=== PATIENT | female | born 1935 | race Two or more races ===

== ENCOUNTER 2018-03-03 11:00 | Inpatient (IN) | payer OTHER ==
[~2018-03-03] VITALS: Ht 152.4 cm; Wt 66.2 kg
[~2018-03-03 11:00] MED LIST: BISOPROLOL-HCTZ1 TA1; COZAAR100 MG
[2018-03-03] MEDS ORDERED: TOPROL XL50 M1 (11:05)
[2018-03-03] MEDS ORDERED: ASA81 MG (11:05)
== END 2018-03-09 13:26 | disposition home or self-care (01) | DRG 300 ==
LOC: ER 11:00 → MEDI 18:21 → MEDJ 03-04 15:34
PROC: 3E0F7GC Introduction of Other Therapeutic Substance into Respiratory Tract, Via Natural or Artificial Opening (ICD-10-PCS; principal; 2018-03-03)
PROC: B54BZZZ Ultrasonography of Right Lower Extremity Veins (ICD-10-PCS; 2018-03-03)
PROC: BT43ZZZ Ultrasonography of Bilateral Kidneys (ICD-10-PCS; 2018-03-05)
PROC: 4A033R1 Measurement of Arterial Saturation, Peripheral, Percutaneous Approach (ICD-10-PCS; 2018-03-06)
PROC: BW40ZZZ Ultrasonography of Abdomen (ICD-10-PCS; 2018-03-06)
DX: I82.4Z1 Acute embolism and thrombosis of unspecified deep veins of right distal lower extremity (principal); N17.8 Other acute kidney failure; J45.41 Moderate persistent asthma with (acute) exacerbation; J20.9 Acute bronchitis, unspecified; D72.823 Leukemoid reaction

== ENCOUNTER 2018-09-16 17:53 | Emergency (ER) | payer OTHER ==
[~2018-09-16] VITALS: Ht 152.4 cm; Wt 0.5 kg
[~2018-09-16 17:53] MED LIST changes: +ASA81 MG; +TOPROL XL50 M1
[2018-09-16] MEDS ORDERED: XARELTO15 MG (18:12)
[2018-09-16] MEDS ORDERED: SKELAXIN800 MG PO (22:06)
== END 2018-09-16 22:37 | disposition home or self-care (01) ==
LOC: ER 17:53
DX: M79.661 Pain in right lower leg (principal)

== ENCOUNTER 2018-11-05 12:55 | Emergency (ER) | payer OTHER ==
[~2018-11-05] VITALS: Ht 180.3 cm; Wt 65.8 kg
[~2018-11-05 12:55] MED LIST changes: +SKELAXIN800 MG PO; +XARELTO15 MG
[2018-11-05] MEDS ORDERED: BACTRIM DS TAB1 EACH PO (19:36)
== END 2018-11-05 20:49 | disposition home or self-care (01) ==
LOC: ER 12:55
DX: L03.116 Cellulitis of left lower limb (principal); D72.828 Other elevated white blood cell count; I73.9 Peripheral vascular disease, unspecified

== ENCOUNTER 2024-07-05 15:55 | Emergency (ER) | payer OTHER ==
[~2024-07-05] VITALS: Ht 152.4 cm; Wt 61.7 kg
[~2024-07-05 15:55] MED LIST changes: +BACTRIM DS TAB1 EACH PO
[2024-07-05] MEDS ORDERED: CLARITHROMYCIN500 MG PO (16:21)
[2024-07-05] MEDS ORDERED: AMOXICILLIN500 M1 PO (16:21)
[2024-07-05] MEDS ORDERED: OMEPRAZOLE20 MG PO (16:21)
[2024-07-05] MEDS ORDERED: DILTIAZEM ER420 M1 PO (16:22)
[2024-07-05] MEDS ORDERED: ROSUVASTATIN CA40 MG PO (16:22)
[2024-07-05] MEDS ORDERED: HYDROXYUREA PO (16:25)
[2024-07-05] MEDS ORDERED: KETOROLAC TROMETHAMINE 60 MG VIAL IM ONE (19:15)
[2024-07-05] MEDS ORDERED: DEXAMETHASONE SODIUM PHOSPHATE 4 MG/ML VIAL IM ONE (19:15)
== END 2024-07-05 20:24 | disposition home or self-care (01) ==
LOC: ER 15:57
DX: M76.899 Other specified enthesopathies of unspecified lower limb, excluding foot (principal); I10 Essential (primary) hypertension